=== PATIENT | female | born 1955 | race Caucasian/White ===

== ENCOUNTER → 2016-10-30 | Outpatient (CLI) | payer OTHER ==
[~2016-10-30] MED LIST: ESTR1TAB PO; FISH1000 PO; LEVO75TA3 PO; MEDR2.5T19 PO; TAB-TAB PO; TELM1TAB56 PO
[2016-10-30 09:49] LABS: AUTOMATED NEUTROPHIL # 3.5 TH/MM3 (1.8-7.7); BASOPHIL % 0.8 % (0.0-2.0); EOSINOPHIL # 0.2 TH/MM3 (0-0.4); EOSINOPHIL % 2.9 % (0.0-4.0); HEMATOCRIT 41.7 % (35.0-46.0); HEMO FLAGS DIFF FINAL; LYMPH % 29.3 % (9.0-44.0); LYMPHOCYTE # 1.7 TH/MM3 (1.0-4.8); MEAN CELL VOLUME 86.8 FL (80.0-100.0); MEAN CORPUSCULAR HEMOGLOBIN 29.5 PG (27.0-34.0); MONO % 7.1 % (0.0-8.0); NEUT % 59.9 % (16.0-70.0); PLATELET COUNT 189 TH/MM3 (150-450); RED BLOOD COUNT 4.81 MIL/MM3 (4.00-5.30); WHITE BLOOD COUNT 5.8 TH/MM3 (4.0-11.0)
[2016-10-30 10:23] LABS: MICRO ALBUMIN RANDOM URINE RAW 6.2 MG/L (0.0-30.0)
[2016-10-30 10:26] LABS: ALKALINE PHOSPHATASE 42 U/L (45-117); ALT (GPT) 28 U/L (10-53); ANION GAP 10 MEQ/L (5-15); AST (GOT) 24 U/L (15-37); BICARBONATE 22.5 MEQ/L (21.0-32.0); BLOOD UREA NITROGEN 12 MG/DL (7-18); CHLORIDE 105 MEQ/L (98-107); FREE T4 1.24 NG/DL (0.76-1.46); GLOMERULAR FILTRATION RATE 82 ML/MIN (>89); GLUCOSE,FASTING 156 MG/DL (74-99); HDL CHOLESTEROL 43.9 MG/DL (40.0-60.0); SODIUM (NA) 137 MEQ/L (136-145); TOTAL BILIRUBIN ADULT 0.6 MG/DL (0.2-1.0)
[2016-10-30 11:13] LABS: HEMOGLOBIN A1b 1.3 %; HEMOGLOBIN Ao 82.7 %; HEMOGLOBIN F 1.2 %; HEMOGLOBIN LA1C 2.3 %
== END ==
LOC: PLAB 06:47
PROVIDERS: ATTEND Family Medicine
DX: E11.9 Type 2 diabetes mellitus without complications (principal); E78.1 Pure hyperglyceridemia; E03.9 Hypothyroidism, unspecified
CPT/HCPCS: 80053; 80061; 82043; 83036; 84439; 84443; 85025

== ENCOUNTER → 2017-02-07 | Outpatient (CLI) | payer OTHER ==
[2017-02-07 09:23] LABS: AUTOMATED NEUTROPHIL # 3.4 TH/MM3 (1.8-7.7); BASOPHIL % 0.5 % (0.0-2.0); EOSINOPHIL # 0.2 TH/MM3 (0-0.4); EOSINOPHIL % 2.9 % (0.0-4.0); HEMATOCRIT 40.9 % (35.0-46.0); HEMO FLAGS DIFF FINAL; LYMPH % 31.5 % (9.0-44.0); LYMPHOCYTE # 1.8 TH/MM3 (1.0-4.8); MEAN CELL VOLUME 85.5 FL (80.0-100.0); MEAN CORPUSCULAR HEMOGLOBIN 29.8 PG (27.0-34.0); MEAN CORPUSCULAR HGB CONC 34.9 % (32.0-36.0); NEUT % 58.1 % (16.0-70.0); PLATELET COUNT 196 TH/MM3 (150-450); RED BLOOD COUNT 4.78 MIL/MM3 (4.00-5.30); RED CELL DISTRIBUTION WIDTH 12.4 % (11.6-17.2); WHITE BLOOD COUNT 5.8 TH/MM3 (4.0-11.0)
[2017-02-07 10:07] LABS: ANION GAP 10 MEQ/L (5-15); AST (GOT) 20 U/L (15-37); BICARBONATE 24.4 MEQ/L (21.0-32.0); BLOOD UREA NITROGEN 15 MG/DL (7-18); CHLORIDE 105 MEQ/L (98-107); GLOMERULAR FILTRATION RATE 98 ML/MIN (>89); GLUCOSE,FASTING 154 MG/DL (74-99); POTASSIUM 3.8 MEQ/L (3.5-5.1); SODIUM (NA) 139 MEQ/L (136-145)
[2017-02-07 10:08] LABS: ALT (GPT) 29 U/L (10-53)
[2017-02-07 10:10] LABS: ALKALINE PHOSPHATASE 46 U/L (45-117); HDL CHOLESTEROL 36.9 MG/DL (40.0-60.0); TOTAL BILIRUBIN ADULT 0.6 MG/DL (0.2-1.0)
[2017-02-07 16:10] LABS: HEMOGLOBIN A1a 0.9 %; HEMOGLOBIN A1b 1.3 %; HEMOGLOBIN F 1.1 %; HEMOGLOBIN LA1C 2.3 %
== END ==
LOC: PLAB 06:46
PROVIDERS: ATTEND Family Medicine
DX: E78.1 Pure hyperglyceridemia (principal); E11.9 Type 2 diabetes mellitus without complications
CPT/HCPCS: 80053; 80061; 83036; 85025

== ENCOUNTER → 2017-06-18 | Outpatient (CLI) | payer OTHER ==
[2017-06-18 11:08] LABS: ALT (GPT) 25 U/L (10-53); ANION GAP 9 MEQ/L (5-15); AST (GOT) 15 U/L (15-37); BICARBONATE 20.8 MEQ/L (21.0-32.0); BLOOD UREA NITROGEN 16 MG/DL (7-18); CHLORIDE 108 MEQ/L (98-107); GLOMERULAR FILTRATION RATE 83 ML/MIN (>89); GLUCOSE,FASTING 164 MG/DL (74-99); POTASSIUM 4.1 MEQ/L (3.5-5.1); SODIUM (NA) 138 MEQ/L (136-145)
[2017-06-18 11:18] LABS: ALKALINE PHOSPHATASE 49 U/L (45-117); HDL CHOLESTEROL 36.1 MG/DL (40.0-60.0); TOTAL BILIRUBIN ADULT 0.4 MG/DL (0.2-1.0)
[2017-06-18 14:25] LABS: HEMOGLOBIN A1a 0.7 %; HEMOGLOBIN A1b 1.2 %; HEMOGLOBIN Ao 82.3 %; HEMOGLOBIN F 1.2 %; HEMOGLOBIN LA1C 2.4 %
== END ==
LOC: PLAB 06:50
PROVIDERS: ATTEND Family Medicine
DX: Z00.00 Encounter for general adult medical examination without abnormal findings (principal)
CPT/HCPCS: 80053; 80061; 83036; 84443

== ENCOUNTER → 2017-10-14 | Outpatient (CLI) | payer OTHER ==
[2017-10-14 09:38] LABS: BASOPHIL % 0.7 % (0.0-2.0); EOSINOPHIL # 0.2 TH/MM3 (0-0.4); EOSINOPHIL % 3.1 % (0.0-4.0); HEMATOCRIT 40.6 % (35.0-46.0); HEMOGLOBIN 14.3 GM/DL (11.6-15.3); LYMPH % 26.2 % (9.0-44.0); LYMPHOCYTE # 1.7 TH/MM3 (1.0-4.8); MEAN CELL VOLUME 85.7 FL (80.0-100.0); MEAN CORPUSCULAR HEMOGLOBIN 30.1 PG (27.0-34.0); MEAN CORPUSCULAR HGB CONC 35.2 % (32.0-36.0); MEAN PLATELET VOLUME 7.3 FL (7.0-11.0); MONO % 7.1 % (0.0-8.0); MONOCYTE # 0.5 TH/MM3 (0-0.9); NEUT % 62.9 % (16.0-70.0); PLATELET COUNT 190 TH/MM3 (150-450); RED BLOOD COUNT 4.74 MIL/MM3 (4.00-5.30); RED CELL DISTRIBUTION WIDTH 12.6 % (11.6-17.2); WHITE BLOOD COUNT 6.4 TH/MM3 (4.0-11.0)
[2017-10-14 10:07] LABS: ALBUMIN 3.5 GM/DL (3.4-5.0); AST (GOT) 17 U/L (15-37); BLOOD UREA NITROGEN 12 MG/DL (7-18); CALCIUM 8.9 MG/DL (8.5-10.1); CHLORIDE 105 MEQ/L (98-107); CREATININE 0.74 MG/DL (0.50-1.00); GLOMERULAR FILTRATION RATE 79 ML/MIN (>89); GLUCOSE,FASTING 165 MG/DL (74-99); SODIUM (NA) 138 MEQ/L (136-145)
[2017-10-14 10:18] LABS: ALKALINE PHOSPHATASE 49 U/L (45-117); ALT (GPT) 20 U/L (10-53); CHOLESTEROL 168 MG/DL (120-200); CHOLESTEROL/ HDL RATIO 4.29 RATIO; FREE T4 1.25 NG/DL (0.76-1.46); HDL CHOLESTEROL 39.1 MG/DL (40.0-60.0); TOTAL BILIRUBIN ADULT 0.7 MG/DL (0.2-1.0); TOTAL PROTEIN 6.5 GM/DL (6.4-8.2); TRIGLYCERIDES 518 MG/DL (42-150)
[2017-10-14 16:51] LABS: HEMOGLOBIN A1C 7.6 % (4.3-6.0)
== END ==
LOC: PLAB 06:51
PROVIDERS: ATTEND Family Medicine
DX: E78.5 Hyperlipidemia, unspecified (principal); E11.9 Type 2 diabetes mellitus without complications; E03.9 Hypothyroidism, unspecified
CPT/HCPCS: 36415; 80053; 80061; 82043; 83036; 84439; 84443; 85025

== ENCOUNTER → 2018-02-23 | Outpatient (CLI) | payer OTHER ==
[2018-02-23 10:16] LABS: AUTOMATED NEUTROPHIL # 3.2 TH/MM3 (1.8-7.7); BASOPHIL % 0.8 % (0.0-2.0); EOSINOPHIL # 0.2 TH/MM3 (0-0.4); EOSINOPHIL % 3.5 % (0.0-4.0); HEMATOCRIT 40.4 % (35.0-46.0); HEMOGLOBIN 13.8 GM/DL (11.6-15.3); LYMPH % 29.3 % (9.0-44.0); LYMPHOCYTE # 1.6 TH/MM3 (1.0-4.8); MEAN CELL VOLUME 86.8 FL (80.0-100.0); MEAN CORPUSCULAR HEMOGLOBIN 29.7 PG (27.0-34.0); MEAN CORPUSCULAR HGB CONC 34.2 % (32.0-36.0); MEAN PLATELET VOLUME 7.7 FL (7.0-11.0); MONO % 7.8 % (0.0-8.0); MONOCYTE # 0.4 TH/MM3 (0-0.9); NEUT % 58.6 % (16.0-70.0); PLATELET COUNT 190 TH/MM3 (150-450); RED BLOOD COUNT 4.65 MIL/MM3 (4.00-5.30); RED CELL DISTRIBUTION WIDTH 13.2 % (11.6-17.2); WHITE BLOOD COUNT 5.5 TH/MM3 (4.0-11.0)
[2018-02-23 10:37] LABS: ALBUMIN 3.5 GM/DL (3.4-5.0); AST (GOT) 16 U/L (15-37); BICARBONATE 19.6 MEQ/L (21.0-32.0); BLOOD UREA NITROGEN 11 MG/DL (7-18); CALCIUM 8.3 MG/DL (8.5-10.1); CHLORIDE 112 MEQ/L (98-107); CHOLESTEROL 143 MG/DL (120-200); CREATININE 0.82 MG/DL (0.50-1.00); GLOMERULAR FILTRATION RATE 70 ML/MIN (>89); GLUCOSE,FASTING 173 MG/DL (74-99); SODIUM (NA) 142 MEQ/L (136-145); TRIGLYCERIDES 383 MG/DL (42-150)
[2018-02-23 10:47] LABS: ALKALINE PHOSPHATASE 53 U/L (45-117); ALT (GPT) 21 U/L (10-53); FREE T4 1.19 NG/DL (0.76-1.46); HDL CHOLESTEROL 36.6 MG/DL (40.0-60.0); LDL CHOLESTEROL 30 MG/DL (0-99); TOTAL BILIRUBIN ADULT 0.5 MG/DL (0.2-1.0); TOTAL PROTEIN 6.6 GM/DL (6.4-8.2)
[2018-02-23 15:53] LABS: HEMOGLOBIN A1C 7.8 % (4.3-6.0)
== END ==
LOC: PLAB 07:02
PROVIDERS: ATTEND Family Medicine
DX: E78.5 Hyperlipidemia, unspecified (principal); E11.9 Type 2 diabetes mellitus without complications; E03.9 Hypothyroidism, unspecified
CPT/HCPCS: 36415; 80053; 80061; 83036; 84439; 84443; 85025